=== PATIENT | female | born 1985 | race Caucasian/White ===

== ENCOUNTER 2017-01-06 00:07 | Emergency (ER) | payer OTHER ==
[~2017-01-06] VITALS: Ht 162.6 cm; Wt 63.6 kg
[2017-01-06 00:09] VITALS: BP 118/86; RESP 18; O2SAT 99
--- NOTE | 2017-01-06 00:28 | ED.REPORT ---
HPI-General Illness Date of Service Jan 06, 2017 ED Provider: Dr. Cas Hogan D.O. A healthy 31 year old female presents to the ED with tongue swelling and trouble swallowing onset this evening. Associated symptoms include lightheadedness and chest erythema. The patient denies vomiting, diarrhea, shortness of breath, or other symptoms. She was recently placed on a course of amoxicillin for a sinus infection, which she finished five days ago. Three days ago the patient developed throat swelling and hives, was seen in Urgent Care, and received a Kenalog injection, with relief of her symptoms. However, when she got home in the evening her chest became tight so she returned to Urgent Care for a work-up and received another dexamethasone injection. The next day she experienced episodes of facial redness and heat. The patient was seen by her PCP today. She has had similar symptoms in the past, usually associated with illness such as a sinus infection. Nursing Notes Stated Complaint: HAVING TROUBLE SWALLOWING Chief Complaint: ENT & Mouth Nursing Notes Reviewed: Yes Allergies: Coded Allergies: clavulanic acid (Verified Allergy, Intermediate, 01/06/17) Scheduled Famotidine (Pepcid) 20 Mg Tablet 20 MG PO BID General Time Seen by MD: 00:27 Chief Complaint Other (Tongue Swelling and Problem Swallowing) Hx Obtained From: Patient Arrived By: Walk-in Sudden in Onset?: Yes Onset Occurred: 1 - 4 hours ago Symptom Duration: Since onset Location: : Neck (Throat) Quality: Painful Severity: Current: Moderate Severity: Maximum: Moderate Associated with: Reports: Rash, Denies: Fever, Shortness of breath, Vomiting Recent Healthcare: Recent doctor visit Similar Sx Previous: Yes Past Medical History Past Medical History None reported Past Surgical History None reported Smoking History Unknown if Ever Smoker Social History Other Social History: Lives with children Ambulatory Status Independent Review of Systems + Trouble swallowing Full Review of Systems Constitutional: Denies: Fever Ears / Nose / Throat: Reports: Throat swelling (Resolved), Tongue swelling Respiratory: Denies: Non-productive cough, Shortness of breath Cardiovascular: Reports: Chest pain (Resolved) GI: Denies: Diarrhea, Vomiting Skin: Reports Rash (Chest erythema) Allergy / Immune: Reports: Hives Neurologic: Reports: Lightheaded Complete sys rev & neg: except as marked. Physical Exam Vital Signs Vital Signs Date Time Temp Pulse Resp B/P Pulse Ox O2 Delivery O2 Flow Rate FiO2 01/06/17 04:23 98 18 107/72 96 Room Air 01/06/17 03:45 85 18 99 Room Air 01/06/17 02:41 86 19 104/64 98 01/06/17 01:15 82 18 99 Room Air 01/06/17 00:09 36.6 100 18 118/86 99 Room Air Initial VS: Reviewed Head / Eyes: Atraumatic, Normocephalic Neck: Supple, Full range of motion Cardiovascular: Regular rate & rhythm, Heart sounds normal Neurologic: Alert, Oriented, Nonfocal Psychiatric: Mood/affect normal, Behavior normal, Normal thought content General/Constitutional: Awake, Alert, No acute distress ENT: Airway patent, Mucous membranes moist Pharynx / Tonsils / Uvula: Positive: Pharyngeal erythema No angioedema Respiratory / Chest: Breath sounds = bilat, No respiratory distress Diminished Breath Sounds: Positive: Decreased bilateral (Bases) Skin: Warm, Dry Rash / Lesion Notes: Hives to anterior chest wall and thighs Interpretation & Diagnostics RAPID STREP NEGATIVE Lab Results Interpretation Result Diagram: 01/06/17 0145 01/06/17 0145 Test 01/06/17 01:45 White Blood Count 8.5th/mm3 (3.8-10.1) Red Blood Count 4.17mil/mm3 (3.90-5.20) Hemoglobin 12.7g/dL (12.0-15.6) Hematocrit 37.0% (35.0-46.0) Mean Corpuscular Volume 88.7fL (81-100) Mean Corpuscular Hemoglobin 30.5pg (27.0-35.0) Mean Corpuscular Hemoglobin Concent 34.3% (32.0-37.0) Red Cell Distribution Width 12.2% (12.3-15.4) Platelet Count 227bil/L (150-400) Neutrophils (%) (Auto) 56.2% (40-74) Lymphocytes (%) (Auto) 35.8% (14-46) Monocytes (%) (Auto) 5.9% (4-12) Eosinophils (%) (Auto) 1.8% (0-5) Basophils (%) (Auto) 0.1% (0-3) D-Dimer 0.81mg/L FEU (<0.50) Sodium Level 141mEq/L (134-144) Potassium Level 3.7mEq/L (3.5-5.2) Chloride Level 103mEq/L (97-108) Carbon Dioxide Level 23mmol/L (18-29) Blood Urea Nitrogen 11mg/dL (6-20) Creatinine 0.50mg/dL (0.57-1.00) Estimat Glomerular Filtration Rate 204mL/min (>59) Glucose Level 92mg/dL (60-99) Calcium Level 8.3mg/dL (8.5-10.1) Troponin T 0.010ug/L (0.0-0.011) ECG Interpretation ECG Interpretation: Normal sinus rhythm rate 83 Time: 02:09 Interpreted by: ED physician Re-Eval/Medical Decision Med Decision/Clinical Course The hives were adequately treated however the chest pain persisted. There is a vague feeling of dyspnea so therefore EKG and troponins were drawn. These are normal. Pulmonary emboli seem to be low risk however I could not explain the chest pain and showed mild dyspnea. D-dimer was elevated. I will long discussion with Aniyah on this. I think she still low risk for pulmonary emboli however she is a smoker. We opted to go ahead and proceed with CT angiogram. I will write upper discharges of the CT were negative. Dr. Chisholm is going to follow up on the CT scan and make an addendum if in fact she has a pulmonary emboli. I otherwise think a course of steroids, [employer] follow-up and outpatient follow-up is indicated. Source of Hx: Old records Time of Eval: 01:40 Patient Status: Condition improved Re-Evaluation/Progress Note: Patient is looking and feeling better. Time of Eval: 02:58 Patient Status: Condition improved Re-Evaluation/Progress Note: Patient rechecked. Discussed lab results. Patient still reports trouble swallowing and pain in her chest. No relief with albuterol. Discussed plan for chest CT. Discharge & Departure Shift Change Sign-Out Response to Therapy: Improved Primary Impression: Urticaria Additional Impression: Chest pain Chest pain type: precordial chest pain Qualified Code: R07.2 - Precordial pain Disposition: Home Discharge Condition All VS Reviewed: Yes Condition: Improved Patient Instructions: Urticaria (ED) Additional Instructions: Thank you for entrusting us with your care today. Your labs and EKG are very reassuring. Benadryl three times daily, as directed. [id number] Pepcid three times daily, as directed. Finish the steroid taper as prescribed. Use the Epi-pen as directed if you experience difficulty breathing, tongue swelling, or throat swelling. Call your primary care provider tomorrow for a follow-up appointment and allergy screening. You may have developed an allergy to amoxicillin. Discuss with with your provider and/or [employer]. Return to the ER with any new or worsening symptoms. Referrals: [facility] Attestation Portions of this note were transcribed by Janelle Yoder. I, Dr. Hogan, personally performed the history, physical exam, and medical decision-making; I reviewed and confirmed the accuracy of the information in the transcribed note. Signed by: Susan Perez, 01/06/2017, 03:10 copies to: [facility] Cas Hogan DO Jan 06, 2017 00:27 JANELLE YODER Jan 06, 2017 00:47
[2017-01-06] MEDS ORDERED: Famotidine Inj 20 MG in IV Premix 1 EACH IV ONE (00:50)
[2017-01-06] MEDS ORDERED: Dexamethasone Inj 20 MG in 0.9% Sodium Chloride-Pha MIX 50 ML IV ONE (00:50)
[2017-01-06] MEDS ORDERED: Albuterol-Ipratropium 3 mL Inhalation Solution NEB ONE (00:50)
[2017-01-06 01:15] VITALS: PULSE 82; RESP 18; O2SAT 99
[2017-01-06 02:02] LABS: BASOPHILS % (AUTO) 0.1 % (0-3); EOSINOPHILS % (AUTO) 1.8 % (0-5); MONOCYTES % (AUTO) 5.9 % (4-12); Mean Corpuscular Hemoglobin 30.5 pg (27.0-35.0); Mean Corpuscular Volume 88.7 fL (81-100); NEUTROPHILS % (AUTO) 56.2 % (40-74); Platelet Count 227 bil/L (150-400)
[2017-01-06 02:41] VITALS: BP 104/64; PULSE 86; RESP 19; O2SAT 98
[2017-01-06 02:41] LABS: TROPONIN T 0.01 ug/L (0.0-0.011)
[2017-01-06] MEDS ORDERED: Epinephrine Racemic 2.25% 0.5 mL Inhalation Solution NEB ONE (03:20)
[2017-01-06 03:45] VITALS: PULSE 85; RESP 18; O2SAT 99
[2017-01-06] MEDS ORDERED: OMEP20TA86 PO (04:05)
[2017-01-06] MEDS ORDERED: FAMO20T PO (04:13)
[2017-01-06 04:23] VITALS: BP 107/72; PULSE 98; RESP 18; O2SAT 96
--- NOTE | 2017-01-06 09:07 | DRSVH ---
PROCEDURE: CT ANGIO CHEST PULMONARY EMBOLISM ([id number]) INDICATIONS: chest pain, normal EKG, elevated ddimer TECHNIQUE: After the administration of intravenous contrast, 2 mm thick sections acquired from the pulmonary api pancho to the posterior costophrenic angles. 3-dimensional maximum intensity projection (MIP) coronal a nd sagittal reformats were then acquired through the thorax. For radiation dose reduction, the follo wing was used: automated exposure control, adjustment of mA and/or kV according to patient size. COMPARISON: None. FINDINGS: Image quality: Excellent. Pulmonary arteries: Pulmonary arteries are normal in size, and demonstrate no intraluminal filling d efects to suggest central pulmonary embolism. Lungs and pleura: Lungs are clear. No pleural effusions or pneumothorax. Central and peripheral ai rways are patent. Mediastinum: Heart size is normal, without pericardial effusion. No mediastinal or hilar adenopathy . Thoracic aorta is normal in caliber and enhancement. Esophagus is normal in caliber. Possible mil d concentric esophageal thickening. Bones and chest wall: No suspicious bony lesions. Ribs and thoracic spine appear intact throughout. Thyroid gland is normal. No axillary or supraclavicular adenopathy. Abdomen: Visualized upper abdominal solid organs appear normal in the early arterial phase of enhanc ement. IMPRESSION: 1. No evidence for acute central pulmonary embolism. 2. Possible mild concentric esophageal thickening. Recommend clinical correlation for esophagitis. No significant discrepancy with the awake overnight monitor radiology preliminary report. Dictated by: Mary Bailey M.D. on 01/06/2017 at 9:03 Approved by: Mary Bailey M.D. on 01/06/2017 at 9:06
== END 2017-01-06 04:24 | disposition home or self-care (01) ==
LOC: SED 00:07
DX: L50.9 Urticaria, unspecified (principal); R07.89 Other chest pain
CPT/HCPCS: 36415; 71275; 80048; 84484; 85025; 85378; 87880; 93005; 94640; 94664; 96374; 96375; 99285; J1100; J1200; J3490; J7620; Q9967

== ENCOUNTER 2017-01-15 07:12 | Emergency (ER) | payer OTHER ==
[~2017-01-15] VITALS: Ht 162.6 cm; Wt 63.6 kg
[~2017-01-15 07:12] MED LIST: FAMO20T PO
[2017-01-15 07:18] VITALS: BP 124/83; PULSE 108; RESP 20; O2SAT 100
--- NOTE | 2017-01-15 07:37 | ED.REPORT ---
HPI-Allergic Reaction Date of Service Jan 15, 2017 ED Provider: David Quinn DO The patient is a 31 year old female w/ a hx of allergic rxns and hives who presents to the ED due to diffuse hives onset earlier today. She came in today bc she feels tingling in her throat and is worried about hives in her throat. This is her second visit in 2 weeks for similar symptoms. Her last ED visist she came to the ED she had a CT scan which also showed esophagitis. She was given a combination of Dexamethasone and Benadryl which was effective in reducing her symptoms. Yesterday was her first whole day without steroids. She regularly sees an woods superintendent for her symptoms. Nursing Notes Stated Complaint: HIVES Chief Complaint: Allergic Reaction Nursing Notes Reviewed: Yes Allergies: Coded Allergies: clavulanic acid (Verified Allergy, Intermediate, 01/06/17) Scheduled Famotidine (Pepcid) 20 Mg Tablet 20 MG PO BID Prednisone (PredniSONE) 20 Mg Tablet 20 MG PO DIRECTED 60mg daily for 3 days, then 40mg daily for 3 days, then 20mg daily for 3 days , then 10mg daily for 4 days General Time Seen by MD: 07:35 Chief Complaint Rash Hx Obtained From: Patient Arrived By: Walk-in Onset Occurred: Yesterday Symptom Duration: Since onset Progression Since Onset: Intermittent Quality: Itching Recent Healthcare: Recent doctor visit Similar Sx Previous: Yes Past Medical History Past Medical History allergic rxn hives Past Surgical History None reported Smoking History Unknown if Ever Smoker Social History Other Social History: Lives with children, Local resident Ambulatory Status Independent Review of Systems Skin: Reports Itching Allergy / Immune: Reports: Allergic reaction, Hives, Itching Complete sys rev & neg: except as marked. Physical Exam Initial Vital Signs Vital Signs (First) Date Time Temp Pulse Resp B/P Pulse Ox O2 Delivery O2 Flow Rate FiO2 01/15/17 07:18 36.6 108 20 124/83 100 Room Air Initial VS: Reviewed Head / Eyes: Atraumatic, Normocephalic, PERRL ENT: Mucous membranes moist, Conjunctiva normal, No scleral icterus Abdomen / GI: Soft, Non-tender, No guarding, No rebound, No distention Extremities: Vascular intact, No swelling, No tenderness Neurologic: Alert, Oriented, Nonfocal Psychiatric: Mood/affect normal, Behavior normal, Normal thought content General/Constitutional: Awake, Alert, Cooperative, Not toxic appearing Respiratory / Chest: Atraumatic, Breath sounds NL, Breath sounds = bilat, No wheezing, No stridor Cardiovascular: Heart rate NL, Regular rhythm, Heart sounds NL, No gallop Color / Condition: Positive: Rash present Rash / Lesion Notes: diffuse uticaria no oral lesions Re-Eval/Medical Decision Med Decision/Clinical Course Recurrent urticaria, and no signs of impending airway distress or other life-threatening pathology. Prednisone taper prescribed. Recommended close follow-up with the patient's woods superintendent. Return precautions given. Counseled Regarding: Diagnosis, Lab results, Need for follow-up, When/why to return to ED Discharge & Departure Primary Impression: Allergic reaction Encounter type: subsequent encounter Qualified Code: T78.40XD - Allergy, unspecified, subsequent encounter Additional Impression: Hives Disposition: Home Discharge Condition All VS Reviewed: Yes Additional Instructions: I am going to send you home with a steroid prescription prednisone. Take this daily. Follow up with your woods superintendent immediately for a middle or intermediate school principal treatment plan. Return to the Emergency Department for any new or worsening symptoms. We are always here to help! Referrals: DOROTHY HOFFMAN (PCP) [facility] Attestation Portion of this note were transcribed by Ermelinda Santoyo. I, Dr. Quinn, personally performed the history, physical exam, and medical decision-making: I reviewed and confirmed the accuracy for the information in the transcribed note. Signed by: jose l Larry, 01/15/17 0900 copies to: DOROTHY HOFFMAN Timothy S DO Jan 15, 2017 07:37 Ermelinda Santoyo Jan 15, 2017 07:45
[2017-01-15] MEDS ORDERED: PRE20 PO (07:51)
[2017-01-15] MEDS ORDERED: predniSONE 20 mg Tablet PO ONE (07:55)
[2017-01-15 08:40] VITALS: BP 118/78; PULSE 98; RESP 18; O2SAT 100
== END 2017-01-15 08:41 | disposition home or self-care (01) ==
LOC: SED 07:12
DX: T78.40XD Allergy, unspecified, subsequent encounter (principal); L50.9 Urticaria, unspecified; X58.XXXD Exposure to other specified factors, subsequent encounter; Y93.89 Activity, other specified; Y92.9 Unspecified place or not applicable; Y99.8 Other external cause status; Z88.1 Allergy status to other antibiotic agents
CPT/HCPCS: 96372; 99283; J1200